=== PATIENT | female | born 1965 | race Caucasian/White ===

== ENCOUNTER 2016-12-22 08:07 | Emergency (ER) | payer OTHER ==
[~2016-12-22] VITALS: Ht 160 cm; Wt 57.6 kg
[~2016-12-22 08:07] MED LIST: ALPRAZOLAM0.5 MG PO; AUGMENTIN 875875 MG PO; BENZONATATE100 MG PO; FLEXERIL10 MG PO; GABAPENTIN400 M2 PO; KEFLEX500 MG PO; MASON NATURAL2000 IU PO; MERIBIN5 MG PO; MOTRIN 400MG (400 MG PO; MULTIVITAMIN1 TAB PO; NAPROXEN500 MG PO; PERCOCET 325 MG1 TA2 PO; PERCOCET 325 MG1 TAB PO; PROTONIX 40MG T40 MG PO; RANITIDINE HYD300 MG PO; RETIN-A20 GM TOP; RITE AID MELATO10 MG PO; TRAMADOL50 MG PO; VICODIN 300 MG-1 TAB PO; VICODIN5-300 PO; VITAB121000 PO; VITAMIN C500 M3 PO; VIVELLE-DOT1 EAC2 TOP; ZOFRAN ODT4 MG PO; ZOFRAN ODT8 MG PO; ZOFRAN4 M1 PO
--- NOTE | 2016-12-22 08:30 | ED HEADACHE COMPLAINT ---
History of Present Illness General Chief Complaint: Headache Stated Complaint: SUAREZ; PAIN MANAGAMENT Source: patient Exam Limitations: no limitations Vital Signs & Intake/Output Vital Signs & Intake/Output Vital Signs Date Time Temp Pulse Resp B/P Pulse O2 O2 Flow FiO2 Ox Delivery Rate 12/22 1044 84 108/80 12/22 0914 64 18 140/60 12/22 0810 97.1 68 18 148/84 98 Room Air Allergies Coded Allergies: tetracycline (NAUSEA 02/11/16) Reconcile Medications Alprazolam 0.5 MG TAB 1 TAB PO PRN ANXIETY (Reported) Estradiol (Vivelle-Dot) 0.1 MG/24 HR TDM 1 PAT TOP QMON HRT (Reported) Gabapentin 400 MG CAP 1 CAP PO DAILY SCOLIOSIS (Reported) Methylprednisolone. (Medrol) 4 MG TAB.DS.PK 1 DP PO AD SINUSITIS 6 on day 1 then reduce by one tablet daily until gone Mometasone Furoate (Nasonex) 50 MCG SPRAY.PUMP 2 SPRAY NASB DAILY PRN SINUSITIS Pantoprazole Sodium (Protonix) 40 MG TAB 40 MG PO DAILY ACID REFLUX (Reported ) RANITIDINE HCL (Ranitidine Hydrochloride) 300 MG TAB 1 TAB PO DAILY GI ( Reported) Topiramate 25 MG TABLET 1 TAB PO BID HEADACHE (Reported) Tretinoin (Retin-A) 0.025% CRE 1 TRISTEN TOP QPM ACNE (Reported) Triage Note: PT STATES THAT SHE HAS HAD A HEADACHE FOR THE PAST 2 WEEKS, AND THAT SHE WAS SEEN BY HER PMD AND HAS MRI SCHEDULED FOR TUESDAY, SAW ENT YESTERDAY WHO IS WORKING ON ORDERING A CT SCAN , PT STATES THAT SHE JUST CAN'T STAND THE HEADACHE AND CAME HERE TODAY. PT WAS STARTED ON TOPAMAX Triage Nurses Notes Reviewed? yes Onset: Gradual Duration: week(s): (3) Timing: recent history Quality/Severity: moderate Severity Numbers: 8 Head Injury Location: frontal, temporal Modifying Factors: Worsens With: movement. HPI: Patient is a 51-year-old female with history of chronic pain, on pain management presenting to the emergency department with chief complaint of left-sided sinus pain that extends into the left temporal and left parietal region of her scalp. She reports that it seemed to improve when she was treated with bronchitis 3 weeks ago with steroids and antibiotics but is still there. Pain is moderate. Throbbing in nature. Denies any visual changes. Denies any change in hearing. She saw her pain management doctor who ordered an MRI of her neck because he feels like it could be a slipped disc. Her MRI is scheduled for 2 days from now. She also saw ENT yesterday detect an x-ray of her sinuses and said that the left sphenoid sinus looks hassan and this could be a true leading to her symptoms. She was given a prescription for Vicodin which she said is not working. She came in today because the headache was worsening. Denies any nausea or vomiting. No recent travel. ([facility]UR[facility]A DOWNING) Past History Travel History Traveled to [place] past 21 day No Medical History Any Pertinent Medical History? 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 No (AURORA DOWNING) Review of Systems Review of Systems Constitutional: Reports: no symptoms. Comments Review of systems: See HPI, All other systems negative. Constitutional, no chills fever or weight loss HEENT: No visual changes no sore throat no congestion Cardiovascular: No chest pain ,palpitation Skin, no jaundice no rashes Respiratory: No dyspnea cough sputum or hemoptysis GI: No nausea no vomiting : No dysuria No hematuria Muscle skeletal: no back pain, no neck pain, Neurologic: No numbness no confusion Psych: No stress anxiety or depression,. Heme/endocrine: No bruising no bleeding no polyuria or polydipsia Immunology: No splenectomy or history of AIDS (AURORA DOWNING) Physical Exam Physical Exam General Appearance: well developed/nourished, no apparent distress, alert, awake , comfortable Cranial Nerves: CRANIAL NERVES ii THROUGH xii GROSSLY INTACT. Comments: Well-developed well-nourished person in no acute distress HEENT: , extraocular motion intact, no nystagmus. Pupils equally round and reactive to light and accommodation. Nose is atraumatic. External auditory canal and Tympanic membranes clear. Pharynx normal. No swelling or edema. Tenderness to palpation over the left maxillary and left frontal sinus. No obvious edema or erythema noted. No polyps visualized in the nasal passages. No septal hematoma. Neck: Supple, no lymphadenopathy, normal range of motion without pain , mild tenderness to palpation over the cervical paraspinal muscles. No bony tenderness. Full range of motion of the neck. No meningeal signs. Back: Nontender Cardiovascular: Regular rate and rhythms no murmurs rubs or gallops, normal JVP Respiratory: Chest nontender. No respiratory distress.breath sounds clear to auscultation bilaterally Extremity: No edema Neuro: Alert oriented x3, motor sensory normal, cranial nerves II through XII grossly intact. Cerebellar testing is unremarkable. Skin: No appreciable rash on exposed skin, skin is warm and dry. Psych: Mood and affect is normal, memory and judgment is normal. Core Measures Severe Sepsis Present: No Septic Shock Present: No (CARRI WASHINGTON,AURORA) Progress Differential Diagnosis: cluster SUAREZ, intracranial Hem., meningitis, migraine SUAREZ, musculoskeletal pain, sinusitis, subarach. Hem., tension SUAREZ, temporal arteritis, TMJ syndrome Plan of Care: Orders Procedure Date/time Status [facility] SED RATE 12/22 08 Complete COMPREHENSIVE METABOLIC PANEL 12/22 817 Complete CBC WITHOUT DIFFERENTIAL 12/22 817 Complete Laboratory Tests 12/22/16 0852: Anion Gap 9, Estimated GFR > 60, BUN/Creatinine Ratio 18.8, Glucose 95, Calcium 8.8, Total Bilirubin 1.1, AST 26, ALT 36, Alkaline Phosphatase 68, Total Protein 6.9, Albumin 4.1, Globulin 2.8, Albumin/Globulin Ratio 1.5, CBC w Diff NO MAN DIFF REQ, RBC 4.53, MCV 89.5, MCH 31.0, RDW 12.6, MPV 7.0 L, Gran % 57.5, Lymphocytes % 32.4, Monocytes % 6.3, Eosinophils % 3.4, Basophils % 0.4, Absolute Granulocytes 3.3, Absolute Lymphocytes 1.9, Absolute Monocytes 0.4, Absolute Eosinophils 0.2, Absolute Basophils 0, PUBS MCHC 34.7, ESR Westergren 10 Diagnostic Imaging: Viewed by Me: CT Scan. Discussed w/RAD: CT Scan. Radiology Impression: PATIENT: GLENDA CALLE PRESENT AGE: 51 PATIENT ACCOUNT NO: [id number] : 63 LOCATION: [facility] ORDERING PHYSICIAN: AUR[facility]A WASHINGTON SERVICE DATE: 12/22/16 EXAM TYPE: CAT - CT FACE/SINUS WITHOUT CONT; CT HEAD W&WO IV CONTRAST EXAMINATION: CT HEAD AND FACE. CLINICAL INFORMATION: Evaluate for aneurysm or cyst. Left-sided headache. COMPARISON: Brain MRI 08/17/2016. TECHNIQUE: Industrial Truck Operator images were obtained. A CT acquisition of the head and face was performed without the intravenous administration of contrast. Data was reformatted into multiplanar images at the acquisition workstation. DLP: 1641.72 mGy-cm. FINDINGS: There is no acute intracranial hemorrhage or abnormal extra-axial collection. No intracranial mass effect or midline shift. Lateral and third ventricles are normal. No hydrocephalus. Hassan-white matter differentiation is preserved and there is no evidence of acute territorial infarct. The calvarium and skull base are intact. Mastoid air cells and middle ear cavities are well aerated. There is mild mucosal thickening within both maxillary sinuses. The primary maxillary sinus ostia are patent. Uncinate processes are intact. There is no ostiomeatal unit dysfunction. The frontal sinuses are well aerated and the frontal recesses are patent. There is mild mucosal thickening within the ethmoid air cells. There is moderate disease within the sphenoid sinus with near total opacification of the left sphenoid chamber and mild mucosal thickening along the rostral and medial surfaces of the right sphenoid chamber. Both of the sphenoethmoidal recesses are occluded. The nasal cavity is unremarkable. Globes are symmetric. There is no retrobulbar mass or inflammation. The lamina papyracea and orbital floors are intact. Orbital apices are unremarkable. IMPRESSION: There is moderate paranasal sinus disease involving the sphenoid sinus with near total opacification of the left sphenoid chamber and mild disease on the right. Both of the sphenoethmoidal recesses are occluded. The remainder of the major paranasal sinus drainage pathways are patent. Mild disease within the maxillary sinuses and ethmoid air cells. The CT scan of the head is unremarkable with no evidence of acute territorial infarct or hemorrhage. DICTATED BY: AKUA MARSHALL,GISELL Medina DATE/TIME DICTATED:12/22/16947 METAL RIVETING MACHINE OPERATOR:TATIANNA DATE/TIME TRANSCRIBED:947 CONFIDENTIAL, DO NOT COPY WITHOUT APPROPRIATE AUTHORIZATION. < Electronically signed in Other Vendor System> Comments: 12/22/2016 9:24:01 AM on arrival patient in no acute distress, neurologically intact. Patient does have sinus tenderness on exam. Patient will be medicated with IV fluids, Zofran, Benadryl, Toradol. 12/22/2016 10:04:44 AM reevaluation patient still having pain. Given Fioricet. Still awaiting CT scan results. 12/22/2016 10:23:13 AM patient informed of all lab work results and imaging study results. CT does show sinusitis with left sphenoid sinus. No acute abnormality of the CT of the head. Lab work is unremarkable. Patient will be treated symptomatically with another course of steroids. She'll follow up with ENT. She will also follow up with her primary for MRI on Tuesday for her neck. She'll be discharged with Medrol Dosepak. Patient educated on increasing fluids. (AURORA DOWNING) Departure Departure Time of Disposition: 1024 Disposition: HOME OR SELF CARE Condition: Stable Clinical Impression Primary Impression: Sinusitis Qualifiers: Sinusitis location: sphenoidal Chronicity: subacute Qualified Code: J01.30 - Acute sphenoidal sinusitis, unspecified Referrals: CHERYL MARSHALL,TAMARA Morel (PCP/Family) DANILO MARSHALL,AN Barrera Additional Instructions: Follow-up with the ENT, call to make an appointment. Take mEDROL Dosepak as prescribed. He is Nasonex as prescribed. Increase fluids. Return for worsening symptoms or concerns. Departure Forms: Customer Survey General Discharge Information Prescriptions: Current Visit Scripts Methylprednisolone. (Medrol) 1 DP PO AD #1 DP 6 on day 1 then reduce by one tablet daily until gone Mometasone Furoate (Nasonex) 2 SPRAY NASB DAILY PRN SINUSITIS #1 INHAL (AURORA DOWNING) PA/BRONZER Co-Sign Statement Statement: ED Attending supervision documentation- [X] I saw and evaluated the patient. I have also reviewed all the pertinent lab results and diagnostic results. I agree with the findings and the plan of care as documented in the PA's/BRONZER's documentation. [] I have reviewed the ED Record and agree with the PA's/BRONZER's documentation. [] Additions or exceptions (if any) to the PAs/BRONZER's note and plan are summarized below: [] (REGGIE CARRASCO DO)
[2016-12-22] MEDS ORDERED: TOPIRAMATE25 M2 PO (08:46)
[2016-12-22 09:07] LABS: ABSOLUTE BASOPHIL COUNT 0 /CUMM (0.0-0.2); ABSOLUTE EOSINOPHIL COUNT 0.2 /CUMM (0.0-0.7); ABSOLUTE GRANULOCYTE CT 3.3 /CUMM (1.4-6.5); ABSOLUTE LYMPH COUNT 1.9 /CUMM (1.2-3.4); ABSOLUTE MONOCYTE COUNT 0.4 /CUMM (0.10-0.60); BASOPHIL % 0.4 % (0.0-2.0); EOSINOPHIL % 3.4 % (0-5); GRANULOCYTE % 57.5 % (42.2-75.2); HEMATOCRIT 40.6 % (37-47); MEAN CORPUSCULAR HGB CONC 34.7 G/DL (33.0-37.0); MEAN CORPUSCULAR VOLUME 89.5 FL (81.0-99.0); PLATELET COUNT 216 /CUMM (130-400); RBC DISTRIBUTION WIDTH 12.6 % (11.5-14.5); RED BLOOD CELL CT 4.53 /CUMM (4.20-5.40); WHITE BLOOD CELL COUNT 5.8 /CUMM (4.8-10.8)
--- NOTE | 2016-12-22 09:59 | CT SCAN REPORT ---
EXAMINATION: CT HEAD AND FACE. CLINICAL INFORMATION: Evaluate for aneurysm or cyst. Left-sided headache. COMPARISON: Brain MRI 08/17/2016. TECHNIQUE: Ticket Collector Or Usher images were obtained. A CT acquisition of the head and face was performed without the intravenous administration of contrast. Data was reformatted into multiplanar images at the acquisition workstation. DLP: 1641.72 mGy-cm. FINDINGS: There is no acute intracranial hemorrhage or abnormal extra-axial collection. No intracranial mass effect or midline shift. Lateral and third ventricles are normal. No hydrocephalus. Hassan-white matter differentiation is preserved and there is no evidence of acute territorial infarct. The calvarium and skull base are intact. Mastoid air cells and middle ear cavities are well aerated. There is mild mucosal thickening within both maxillary sinuses. The primary maxillary sinus ostia are patent. Uncinate processes are intact. There is no ostiomeatal unit dysfunction. The frontal sinuses are well aerated and the frontal recesses are patent. There is mild mucosal thickening within the ethmoid air cells. There is moderate disease within the sphenoid sinus with near total opacification of the left sphenoid chamber and mild mucosal thickening along the rostral and medial surfaces of the right sphenoid chamber. Both of the sphenoethmoidal recesses are occluded. The nasal cavity is unremarkable. Globes are symmetric. There is no retrobulbar mass or inflammation. The lamina papyracea and orbital floors are intact. Orbital apices are unremarkable. IMPRESSION: There is moderate paranasal sinus disease involving the sphenoid sinus with near total opacification of the left sphenoid chamber and mild disease on the right. Both of the sphenoethmoidal recesses are occluded. The remainder of the major paranasal sinus drainage pathways are patent. Mild disease within the maxillary sinuses and ethmoid air cells. The CT scan of the head is unremarkable with no evidence of acute territorial infarct or hemorrhage.
[2016-12-22] MEDS ORDERED: NASONEX17 GM NASB (10:27)
[2016-12-22] MEDS ORDERED: MEDROL4 M2 PO (10:27)
[2016-12-22 10:44] VITALS: BP 108/80
== END 2016-12-22 10:47 ==
LOC: ERH 08:07
PROVIDERS: Physician Assistant
DX: J32.9 Chronic sinusitis, unspecified (principal)
CPT/HCPCS: 96361; 96374; 96375; J1200; J1885; J2405; Q9965

== ENCOUNTER 2017-01-29 18:09 | Emergency (ER) | payer OTHER ==
[~2017-01-29 18:09] MED LIST changes: +MEDROL4 M2 PO; +NASONEX17 GM NASB; +TOPIRAMATE25 M2 PO
[2017-01-29] MEDS ORDERED: ALPRAZOLAM0.25 M1 PO (19:28)
[2017-01-29] MEDS ORDERED: BIOTIN2500 MCG PO (19:29)
[2017-01-29] MEDS ORDERED: VITAMIN D2000 UNI1 PO (19:30)
[2017-01-29] MEDS ORDERED: VITAMIN B-121000 MC3 PO (19:30)
[2017-01-29] MEDS ORDERED: VITAMIN C500 M8 PO (19:30)
[2017-01-29] MEDS ORDERED: MAGNESIUM400 M1 PO (19:31)
--- NOTE | 2017-01-29 19:41 | ED INFLUENZA/URI COMPLAINT ---
History of Present Illness General Chief Complaint: General Adult Stated Complaint: HEAD, NECK PAIN, S/P SPHENOID SURGERY 01/17 Source: patient Exam Limitations: no limitations Vital Signs & Intake/Output Vital Signs & Intake/Output Vital Signs Date Time Temp Pulse Resp B/P Pulse O2 O2 Flow FiO2 Ox Delivery Rate 01/29 2014 97.2 79 20 132/70 99 Room Air 01/297 96.9 80 22 138/71 97 Room Air Allergies Coded Allergies: tetracycline (NAUSEA 02/11/16) Reconcile Medications Alprazolam 0.25 MG TABLET 1 TAB PO DAILY PRN ANXIETY (Reported) Ascorbic Acid (Vitamin C) (Unknown Strength) TABLET (Unknown Dose) PO DAILY SUPPLEMENT (Reported) Biotin (Unknown Strength) CAPSULE (Unknown Dose) PO DAILY SUPPLEMENT ( Reported) Cholecalciferol (Vitamin D3) (Vitamin D) (Unknown Strength) TABLET (Unknown Dose) PO DAILY SUPPLEMENT (Reported) Cyanocobalamin (Vitamin B-12) (Unknown Strength) TABLET (Unknown Dose) PO DAILY SUPPLEMENT (Reported) Cyclobenzaprine HCl 10 MG TABLET 1 TAB PO 4 TIMES/DAY PRN MUSCLE SPASM Diazepam (Valium) 5 MG TABLET 1 TAB PO TID PRN MUSCLE SPASM Estradiol (Vivelle-Dot) 0.1 MG/24 HOUR PATCH.TDSW 1 PAT TOP QMON HRT ( Reported) Gabapentin 400 MG CAPSULE 1 CAP PO BID SCOLIOSIS (Reported) Magnesium Oxide (Magnesium) (Unknown Strength) CAPSULE (Unknown Dose) PO DAILY SUPPLEMENT (Reported) Oxycodone HCl/Acetaminophen (Percocet 5-325 MG Tablet) 5 MG-325 MG TABLET 1-2 TAB PO 4XDP PRN PAIN TEN...[id number] Tretinoin (Retin-A) 0.025 % CREAM..G. 1 TRISTEN TOP QPM FACE (Reported) apply to affected area(s) Triage Note: SP SPHENOID SURGERY 01/[address] ANNA AND 2 NECK FUSIONS, SAW CHRIOPRACTOR AND D/T MANIPULATION HAS BEEN HAVING SEVERE FACE PAIN AND SUAREZ TOOK ADVIL, TYLENOL AND NEURONTIN AT 1700 Triage Nurses Notes Reviewed? yes Onset: Gradual Duration: day(s): Timing: recent history Severity: moderate Prior Episodes/Possible Cause: illness exposure No Modifying Factors: none HPI: 51-year-old woman presents with left sided headache and left neck muscle spasm for the past several days. She recently had sphenoid surgery on 2/27, which went well. She has muscle spasm, pain with movement. She is otherwise well. Past History Travel History Traveled to [place] past 21 day No Medical History Any Pertinent Medical History? 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 No Review of Systems Review of Systems Constitutional: Reports: no symptoms. EENTM: Reports: no symptoms. Respiratory: Reports: no symptoms. Cardiovascular: Reports: no symptoms. GI: Reports: no symptoms. Genitourinary: Reports: no symptoms. Musculoskeletal: Reports: no symptoms. Skin: Reports: no symptoms. Neurological/Psychological: Reports: no symptoms. Hematologic/Endocrine: Reports: no symptoms. Immunologic/Allergic: Reports: no symptoms. All Other Systems: Reviewed and Negative Physical Exam Physical Exam General Appearance: well developed/nourished Head: normal appearance, tender along scalp musculature Eyes: Bilateral: normal appearance. Ears, Nose, Throat: normal ENT inspection, moist mucous membrane, tonque normal. no sign of abscess Neck: normal inspection, supple, full range of motion Respiratory: normal breath sounds, chest non-tender, no respiratory distress, quiet respiration Cardiovascular: regular rate/rhythm Gastrointestinal: normal bowel sounds, soft, non-tender, no organomegaly Back: normal inspection Extremities: normal inspection, normal capillary refill, normal range of motion, no edema Neurologic/Psych: awake, alert, oriented x 3 Reflexes: 1+: bicep (R), bicep (L). Skin: intact, normal color, warm/dry, cyanosis Core Measures Severe Sepsis Present: No Septic Shock Present: No Progress Differential Diagnosis: influenza, neutropenia, otitis, pharyngitis, sinusitis Plan of Care: see below. Initial ED EKG: normal axis, normal intervals, normal p-waves, normal QRS complex, normal sinus rhythm Departure Departure Disposition: HOME OR SELF CARE Condition: Stable Clinical Impression Primary Impression: Headache Referrals: CHERYL MARSHALL,TAMARA Morel (PCP/Family) Departure Forms: Customer Survey General Discharge Information Prescriptions: Current Visit Scripts Oxycodone HCl/Acetaminophen (Percocet 5-325 MG Tablet) 1-2 TAB PO 4XDP PRN PAIN #10 TAB TEN...[id number] Diazepam (Valium) 1 TAB PO TID PRN MUSCLE SPASM #10 TAB Cyclobenzaprine HCl 1 TAB PO 4 TIMES/DAY PRN MUSCLE SPASM #30 TAB Ref 1
[2017-01-29] MEDS ORDERED: CYCLOBENZAPRINE10 M1 PO (19:55)
[2017-01-29] MEDS ORDERED: PERCOCET 5-3251 EACH PO (19:55)
[2017-01-29] MEDS ORDERED: VALIUM5 M2 PO (19:55)
[2017-01-29 20:14] VITALS: BP 132/70
== END 2017-01-29 20:15 ==
LOC: ERH 18:09
DX: R51 Headache (principal); M54.2 Cervicalgia
CPT/HCPCS: 96372; J1885; J3360